=== PATIENT | female | born 1975 | race Caucasian/White ===

== ENCOUNTER 2016-06-07 22:52 | Emergency (ER) | payer MEDICAID, OTHER ==
[~2016-06-07] VITALS: Ht 170.2 cm; Wt 57.2 kg
[2016-06-07 22:52] VITALS: BP 122/66
== END 2016-06-08 02:24 | disposition left against medical advice (07) ==
LOC: M ED 06-08 01:27
DX: L98.9 Disorder of the skin and subcutaneous tissue, unspecified (principal); Z53.21 Procedure and treatment not carried out due to patient leaving prior to being seen by health care provider

== ENCOUNTER 2016-09-12 07:33 | Emergency (ER) | payer OTHER ==
[~2016-09-12] VITALS: Ht 170.2 cm; Wt 56.8 kg
[2016-09-12] MEDS ORDERED: BENZ200C53 (07:46)
--- NOTE | 2016-09-12 09:11 | REP ---
CHEST, TWO VIEWS: COMPARISON: 12/17/2005. There is no evidence of acute infiltrate. No pleural effusion is seen. The heart is normal in size. The mediastinal silhouette is unremarkable. The visualized osseous structures are intact. IMPRESSION: No acute pulmonary disease. Signed by Patel Friedman MD 09/12/2016 05:06 P
[2016-09-12] MEDS ORDERED: ALBU17IN INH (09:15)
[2016-09-12 09:36] VITALS: BP 128/63
== END 2016-09-12 09:38 | disposition home or self-care (01) ==
LOC: M ED 07:33
DX: J06.9 Acute upper respiratory infection, unspecified (principal); Z87.891 Personal history of nicotine dependence; Z79.899 Other long term (current) drug therapy; J30.1 Allergic rhinitis due to pollen

== ENCOUNTER → 2016-09-16 | Outpatient (CLI) | payer OTHER ==
[~2016-09-16] MED LIST: ACET30TAB PO; ALBU17IN INH; BENZ200C53; IBUP-1022 PO; PRED20TA PO; TESS100C PO
== END ==
LOC: M LAB 15:01
PROVIDERS: ATTEND Hospitalist
DX: R05 Cough (principal)

== ENCOUNTER 2016-09-20 12:25 | Emergency (ER) | payer OTHER ==
[~2016-09-20] VITALS: Ht 170.2 cm; Wt 56.8 kg
[~2016-09-20 12:25] MED LIST changes: -ACET30TAB PO; -IBUP-1022 PO; -PRED20TA PO; -TESS100C PO
[2016-09-20] MEDS ORDERED: PRED20TA PO (12:37)
[2016-09-20] MEDS ORDERED: IBUP-1022 PO (12:37)
[2016-09-20] MEDS ORDERED: TESS100C PO (13:24)
[2016-09-20] MEDS ORDERED: ACET30TAB PO (13:24)
[2016-09-20 13:31] VITALS: BP 110/58
--- NOTE | 2016-09-20 13:37 | REP ---
Right rib series: Five views including PA chest. History: Right anterior rib pain. Findings: PA chest radiograph is normal. There is no evidence of infiltrate, pneumothorax or hydrothorax. Mediastinum is not widened. No change from comparison study September 12, 2016. Findings: Five views of the right ribcage show no evidence of rib fracture or bony destructive lesion. Impression: Negative right rib views. Signed by Agustin Alvares MD 09/20/2016 04:13 P
== END 2016-09-20 13:34 | disposition home or self-care (01) ==
LOC: M ED 12:25
DX: R05 Cough (principal); R07.81 Pleurodynia; Z87.442 Personal history of urinary calculi; Z87.891 Personal history of nicotine dependence; Z79.52 Long term (current) use of systemic steroids

== ENCOUNTER → 2016-11-07 | Outpatient (CLI) | payer OTHER ==
[~2016-11-07] MED LIST changes: +ACET30TAB PO; +IBUP-1022 PO; +PRED20TA PO; +TESS100C PO
[2016-11-07 12:27] LABS: BASO % 0.9 % (0.0-1.0); EOS # 0.2 K/mm3 (0.0-0.50); EOS % 4.4 % (0.0-3.0); LARGE UNSTAINED CELL # 0.1 K/mm3 (0.0-0.4); LARGE UNSTAINED CELL % 1.5 % (0.0-4.0); LYMPH % 20.3 % (24.0-44.0); MEAN CORPUSCULAR HGB CONC 34.7 g/dl (32.0-36.5); MEAN CORPUSCULAR VOLUME 92.3 fl (80.0-96.0); MONO # 0.3 K/mm3 (0.0-0.8); MONO % 5.6 % (0.0-5.0); NEUTROPHILS # 3.2 K/mm3 (1.8-7.7); NEUTROPHILS % 67.4 % (36.0-66.0); PLATELET COUNT, AUTOMATED 214 k/mm3 (150-450); RED CELL DISTRIBUTION WIDTH 11.9 % (11.5-14.5); WHITE BLOOD COUNT 4.8 K/mm3 (4.0-10.0)
[2016-11-07 12:53] LABS: ALBUMIN 3.8 GM/DL (3.2-5.2); ALBUMIN/GLOBULIN RATIO 1.09 (1.00-1.93); ALKALINE PHOSPHATASE 63 U/L (45-117); ALT/SGPT 24 U/L (12-78); ANION GAP 9 MEQ/L (8-16); AST/SGOT 14 U/L (15-37); BILIRUBIN,TOTAL 0.9 MG/DL (0.2-1.0); BLOOD UREA NITROGEN 12 MG/DL (7-18); CALCIUM LEVEL 8.6 MG/DL (8.5-10.1); CARBON DIOXIDE LEVEL 28 MEQ/L (21-32); CHLORIDE LEVEL 105 MEQ/L (98-107); CHOLESTEROL LEVEL 157 MG/DL (<200); CREATININE FOR GFR 0.76 MG/DL (0.55-1.02); GLOMERULAR FILTRATION RATE > 60.0 (>58); GLUCOSE, FASTING 66 MG/DL (70-105); POTASSIUM SERUM 4.2 MEQ/L (3.5-5.1); SODIUM LEVEL 142 MEQ/L (136-145); TOTAL PROTEIN 7.3 GM/DL (6.4-8.2); TRIGLYCERIDES LEVEL 54 MG/DL (<150)
== END ==
LOC: M WUC 11:16
PROVIDERS: ATTEND Obstetrics & Gynecology
DX: R07.81 Pleurodynia (principal); J45.30 Mild persistent asthma, uncomplicated; J30.1 Allergic rhinitis due to pollen

== ENCOUNTER 2017-03-01 12:36 | Emergency (ER) | payer OTHER ==
[2017-03-01] MEDS: METOCLOPRAMIDE INJ 10MG/2ML VIAL (J2765) IV (13:58)
[2017-03-01] MEDS: diphenhydrAMINE INJ 50MG/ML VIAL (J1200) IV (13:58)
[2017-03-01] MEDS: NS 1,000 ML IV (13:59)
[2017-03-01] MEDS: KETOROLAC 30 MG/ML VIAL (J1885) IV (13:59)
== END 2017-03-01 15:40 | disposition home or self-care (01) ==
LOC: M ED 12:36
DX: G44.209 Tension-type headache, unspecified, not intractable (principal); J45.909 Unspecified asthma, uncomplicated; Z87.442 Personal history of urinary calculi; Z91.048 Other nonmedicinal substance allergy status
CPT/HCPCS: J1200

== ENCOUNTER → 2017-04-05 | Outpatient (CLI) | payer OTHER, MEDICAID | LOC: M WUC 11:40 | DX: M25.511 Pain in right shoulder (principal); M25.512 Pain in left shoulder | CPT/HCPCS: 73030 ==

== ENCOUNTER 2017-05-16 07:39 | Outpatient (RCR) | payer OTHER, MEDICAID | END 2017-06-03 | LOC: M PT 07:39 | DX: Z51.89 Encounter for other specified aftercare (principal); M75.82 Other shoulder lesions, left shoulder; M75.81 Other shoulder lesions, right shoulder | CPT/HCPCS: 97110 ==

== ENCOUNTER 2017-06-06 07:29 | Outpatient (RCR) | payer OTHER, MEDICAID | END 2017-07-03 | LOC: M PT 07:29 | DX: Z51.89 Encounter for other specified aftercare (principal); M75.82 Other shoulder lesions, left shoulder; M75.81 Other shoulder lesions, right shoulder | CPT/HCPCS: 97010 ==

== ENCOUNTER → 2017-11-09 | Outpatient (CLI) | payer SELFPAY, OTHER | LOC: M WHC 07:51 | DX: Z12.31 Encounter for screening mammogram for malignant neoplasm of breast (principal) | CPT/HCPCS: 77067 ==

== ENCOUNTER → 2017-11-30 | Outpatient (CLI) | payer MEDICAID ==
[2017-11-30 13:34] LABS: BASO % 0.9 % (0.0-1.0); EOS # 0.1 10^3/uL (0.0-0.50); EOS % 2.8 % (0.0-3.0); HEMATOCRIT 38.2 % (36.0-47.0); HEMOGLOBIN 12.7 g/dl (12.0-15.5); IMMATURE GRANULOCYTE % 0.2 % (0-3.0); LYMPH # 1.1 10^3/uL (1.5-4.5); LYMPH % 23.1 % (24.0-44.0); MEAN CORPUSCULAR HEMOGLOBIN 31.5 pg (27.0-33.0); MEAN CORPUSCULAR HGB CONC 33.2 g/dl (32.0-36.5); MEAN CORPUSCULAR VOLUME 94.8 fl (80.0-96.0); MONO # 0.3 10^3/uL (0.0-0.8); MONO % 7.3 % (0.0-5.0); NEUTROPHILS # 3.1 10^3/uL (1.8-7.7); NEUTROPHILS % 65.7 % (36.0-66.0); PLATELET COUNT, AUTOMATED 281 10^3/uL (150-450); RED BLOOD COUNT 4.03 10^6/uL (4.00-5.40); RED CELL DISTRIBUTION WIDTH 11.8 % (11.5-14.5); WHITE BLOOD COUNT 4.6 10^3/uL (4.0-10.0)
[2017-11-30 14:24] LABS: FOLLICLE STIMULATING HORMONE 33.8 mIU/mL; HCG, SERUM QUANTITATIVE < 1.0 MIU/ML; PROLACTIN 4.8 NG/ML
== END ==
LOC: M WUC 10:30
DX: N93.9 Abnormal uterine and vaginal bleeding, unspecified (principal)

== ENCOUNTER → 2018-01-11 | Outpatient (CLI) | payer MEDICAID, SELFPAY ==
[~2018-01-11] MED LIST changes: -BENZ200C53; +BENZ200C70
--- NOTE | 2018-01-11 16:50 | REP ---
Pelvic sonography: History: Abnormal uterine bleeding. Findings: Transabdominal and transvaginal scanning are included. Uterine dimensions are normal 8.3 x 3.4 x 4.8 cm endometrial echo 0.8 cm thick. No focal uterine mass seen. Bladder aguirre are smooth. The right ovary measures 2.6 x 1.0-x 2.4 cm. There is a 0.7 cm ovarian echogenic focus consistent with calcification. Resistive index by Doppler is normal at 0.5. Left ovary dimensions are 3.2 x 2.2 x 3.7 cm. There are echogenic foci in the left ovary producing shadowing as well. Resistive index is normal on the left at 0.45. Impression: No uterine or ovarian mass lesion seen. Small echogenic foci in each ovary consistent with calcifications. Normal Doppler flow. No free fluid.
== END ==
LOC: M WHC 12:22
PROVIDERS: ATTEND Obstetrics & Gynecology
DX: N93.9 Abnormal uterine and vaginal bleeding, unspecified (principal)

== ENCOUNTER → 2018-10-26 | Outpatient (REF) | payer OTHER ==
[~2018-10-26] MED LIST changes: +ACET-716 PO; -ACET30TAB PO; +CYCL10TA; +QVAR40AE12
== END ==
LOC: M SFHCPLAZ 11:27
PROVIDERS: ATTEND Family Medicine
DX: Z13.1 Encounter for screening for diabetes mellitus (principal); Z13.220 Encounter for screening for lipoid disorders; Z53.9 Procedure and treatment not carried out, unspecified reason

== ENCOUNTER 2018-12-01 11:36 | Emergency (ER) | payer OTHER ==
[~2018-12-01] VITALS: Ht 170.2 cm; Wt 56.8 kg
[~2018-12-01 11:36] MED LIST changes: -CYCL10TA; -QVAR40AE12
[2018-12-01] MEDS ORDERED: QVAR40AE12 (11:51)
[2018-12-01] MEDS ORDERED: CYCL10TA (11:51)
[2018-12-01] MEDS ORDERED: CYCLOBENZAPRINE 5MG TABLET PO ONE (14:15)
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
[2018-12-01 14:57] VITALS: BP 100/65
== END 2018-12-01 15:07 | disposition home or self-care (01) ==
LOC: M ED 11:36 → EDBD 11:36 → M ED 15:07
DX: S39.012A Strain of muscle, fascia and tendon of lower back, initial encounter (principal); V49.49XA Driver injured in collision with other motor vehicles in traffic accident, initial encounter; Y92.410 Unspecified street and highway as the place of occurrence of the external cause; J45.909 Unspecified asthma, uncomplicated

== ENCOUNTER → 2018-12-06 | Outpatient (CLI) | payer MEDICAID, OTHER ==
[~2018-12-06] MED LIST changes: +CYCL10TA; +QVAR40AE12
--- NOTE | 2018-12-06 10:48 | REPMRS ---
Patient History The patient states she has not had a clinical breast exam in over a year. No known family history of cancer. 3D TOMOSYNTHESIS WAS PERFORMED. [facility] for [facility]%. Digital Woman Screen Mammo: December 06, 2018 - Exam #: [id number] Bilateral CC and MLO view(s) were taken. Technologist: Guera Miller, Technologist Prior study comparison: November 09, 2017, bilateral digital woman screen mammo performed at [facility]. May 07, 2014, bilateral digital mammo screening bilat, performed at [facility]. FINDINGS: The breast tissue is heterogeneously dense. This may lower the sensitivity of mammography. There has been no change in the appearance of the mammogram from the prior studies. There is a moderate amount of residual fibroglandular tissue which is fairly symmetric. There is no interval development of dominant mass, areas of architectural distortion, or clustered microcalcification typical of malignancy. Assessment: BI-RADS/ACR category 1 mammogram. Negative Mammogram. Recommendation Routine screening mammogram in 1 year (for women over age 40). This mammogram was interpreted with the aid of an FDA-approved computer-aided dectection system. Electronically Signed By: Patel Friedman MD 12/06/18 [id number]
== END ==
LOC: M WHC 08:06
PROVIDERS: ATTEND Obstetrics & Gynecology
DX: Z12.31 Encounter for screening mammogram for malignant neoplasm of breast (principal)

== ENCOUNTER → 2018-12-19 | Outpatient (REF) | payer OTHER | LOC: M SFHCPLAZ 10:19 | PROVIDERS: ATTEND Dermatology | DX: L72.11 Pilar cyst (principal) ==

== ENCOUNTER → 2019-02-18 | Outpatient (CLI) | payer OTHER ==
--- NOTE | 2019-02-18 15:37 | REP ---
Left shoulder: Four views. History: Strain. Findings: Four views of the left shoulder are compared with the prior study from April 05, 2017. Findings: The left glenohumeral and acromioclavicular joints are normally aligned. Periarticular soft tissues are unremarkable. No erosive changes seen. Impression: Negative radiographs of the left shoulder. Electronically Signed by Agustin Alvares MD 02/18/2019 03:28 P
== END ==
LOC: M WUC 15:01
PROVIDERS: ATTEND Physician Assistant
DX: S46.012A Strain of muscle(s) and tendon(s) of the rotator cuff of left shoulder, initial encounter (principal); W18.30XA Fall on same level, unspecified, initial encounter; Y92.009 Unspecified place in unspecified non-institutional (private) residence as the place of occurrence of the external cause

== ENCOUNTER → 2019-03-14 | Outpatient (CLI) | payer OTHER ==
--- NOTE | 2019-03-14 20:14 | REP ---
MRI left shoulder without contrast: History: Other synovitis and tenosynovitis left shoulder. Rule out rotator cuff tear. Comparison shoulder radiographs are from February 18, 2019. Technique: Axial, oblique coronal, and oblique sagittal imaging planes are utilized. T1 and T2-weighted scans were included with and without fat saturation. MRI findings: Cortical and medullary bone signal intensity are normal in the proximal humerus, distal clavicle, and visualized scapula. No significant joint effusion is seen. There is mild tendonitis tendinosis change in the distal supraspinatus on oblique coronal T1-weighted scans. Bursal surface increased T2 signal intensity is seen in the distal tendon suggesting partial thickness distal supraspinatus cuff lesion. Biceps tendon is intact. The subscapularis and infraspinatus tendons are unremarkable. No evidence of anterior or posterior labral tear is appreciated. The superior labral cartilage has an intact appearance. No skeletal muscle changes. Impression: Tendonitis tendinosis in the distal supraspinatus tendon with partial thickness T2 hyperintensity along the bursal surface. Otherwise negative. Electronically Signed by Agustin Alvares MD 03/14/2019 08:21 P
== END ==
LOC: M RAD 10:54
PROVIDERS: ATTEND Orthopaedic Surgery Sports Medicine
DX: M65.812 Other synovitis and tenosynovitis, left shoulder (principal)

== ENCOUNTER → 2019-08-06 | Outpatient (CLI) | payer OTHER ==
[~2019-08-06] MED LIST changes: +CYCL-707; -CYCL10TA; +NEXP1IMP SC
== END ==
LOC: M LABSMTC 11:30
PROVIDERS: ATTEND Anesthesiology
DX: Z01.818 Encounter for other preprocedural examination (principal); Z11.59 Encounter for screening for other viral diseases
CPT/HCPCS: C9803; U0003

== ENCOUNTER 2019-08-09 13:27 | Day surgery (SDC) | payer OTHER ==
[~2019-08-09] VITALS: Ht 170.2 cm; Wt 60.3 kg
[~2019-08-09 13:27] MED LIST changes: +LIDOCAINE 1% MDV 20ML VIAL SQ PRN; +LIDOCAINE 2% 100MG/5ML SDV (FOR ANES.) As Ordered ONE; +LR 1,000 ML IV ONE; +METOCLOPRAMIDE INJ 10MG/2ML VIAL (J2765 PER 1) As Ordered ONE; +MIDAZOLAM INJ 2MG/2ML VIAL (J2250 PER 1MG) As Ordered ONE; +ONDANSETRON 4MG/2ML VIAL As Ordered ONE; +ceFAZolin SOD 2 GM in IV 1 EA IV ONE; +fentaNYL 100 MCG/2 ML INJECTION (J3010) As Ordered ONE; +propofoL 200 MG/20 ML VIAL As Ordered ONE
[2019-08-09] MEDS ORDERED: dexameTHASONE 10MG/1ML VIAL PRES.FREE (J1100 PER 1MG) ONE (13:28)
[2019-08-09] MEDS ORDERED: ROPIvacaine 0.5% 30ML INJECTION (J2795 PER 1MG) ONE (13:28)
[2019-08-09] MEDS ORDERED: LIDOCAINE 1% MDV 20ML VIAL ONE (13:28)
[2019-08-09] MEDS ORDERED: ROCURONIUM BROMIDE 50 MG/5 ML VIAL As Ordered ONE (13:29)
[2019-08-09] MEDS ORDERED: LIDOCAINE 1% MDV 20ML VIAL As Ordered ONE (13:46)
[2019-08-09] MEDS ORDERED: MIDAZOLAM INJ 2MG/2ML VIAL (J2250 PER 1MG) IV ONE (14:15)
[2019-08-09] MEDS ORDERED: fentaNYL 100 MCG/2 ML INJECTION (J3010) IV ONE (14:30)
[2019-08-09] MEDS ORDERED: LR 1,000 ML IV SCH ×2 (16:00)
[2019-08-09] MEDS ORDERED: MORPHINE 2 MG/ML 1ML VIAL (J2270) IV PRN (16:00)
[2019-08-09] MEDS ORDERED: PERCOCET 5MG/325MG TAB PO PRN ×2 (16:00)
[2019-08-09] MEDS ORDERED: HYDROMORPHONE HCL 0.5 MG/ 0.5 ML SYRINGE (J1170 PER 1) IV PRN (16:00)
[2019-08-09] MEDS ORDERED: ONDANSETRON 4MG/2ML VIAL IV PRN ×2 (16:00)
[2019-08-09] MEDS ORDERED: ACETAMINOPHEN TAB 650MG DOSE (2X325MG) PO PRN (16:00)
[2019-08-09] MEDS ORDERED: fentaNYL 100 MCG/2 ML INJECTION (J3010) IV PRN (16:00)
[2019-08-09 18:10] VITALS: BP 142/65
--- NOTE | 2019-08-10 00:40 | RO ---
DATE OF PROCEDURE: 08/09/2019 PREOPERATIVE DIAGNOSIS: Left shoulder impingement syndrome. POSTOPERATIVE DIAGNOSIS: Left shoulder impingement syndrome. PLANNED PROCEDURE: Left shoulder arthroscopy, subacromial decompression, debridement versus repair rotator cuff tear, as well as distal clavicle excision. PROCEDURE PERFORMED: Left shoulder arthroscopy, subacromial decompression and debridement of partial thickness bursal sided supraspinatus tear and distal clavicle excision. SURGEON: Shaggy Matthew MD BODY MECHANIC: Muna Loredo [employer] COORDINATOR: Dr. Viveros TYPE OF ANESTHETIC: General anesthetic and block OPERATIVE PREAMBLE: This 44-year-old female had shoulder pain refractory to nonoperative management. She had pain overlying the acromioclavicular (AC) joint. She had a small bursal-sided rotator cuff tear on MRI. I reiterated the risks in preoperative holding and marked the left upper extremity and proceeded to surgery. DESCRIPTION OF PROCEDURE: The patient was brought to operating theater. She was administered general anesthetic. She was placed left lateral decubitus. Axillary roll was placed and all bony prominences were padded. Sequential compression device (SCDs) were used on the leg. Two grams of IV Ancef was administered. Limb was prepped and draped in the usual sterile fashion with 10 pounds traction, the arm in 45 degrees in abduction. Preop time-out was performed to confirm the site, the patient and surgery. Over 3 minutes prep solution drying time was used prior to draping. Began by making a standard posterior arthroscopy portal. Inserted the arthroscope into the glenohumeral joint. I performed thorough diagnostic arthroscopy. Cartilage on the humeral head and glenoid was normal. Labrum was normal circumferentially. Biceps was normal. No synovitis tears or SLAP tears. Rotator interval was entered with a spinal needle and then a shaver brought into the joint. Small amounts of debridement in the rotator interval was performed. Middle glenohumeral ligament as well as subscapularis tendon appeared normal as did the undersurface of the supraspinatus tendon. Axillary pouch was normal. No obvious loose body. Scope was withdrawn and placed into the subacromial space. Performed a thorough debridement of the bursa. There was no obvious inflamed bursa, normal amount of bursa was present. This was debrided and removed. Subacromial decompression was performed to flat margins. There was no obvious large spur. I used a 4.0 oval bur to perform this. I then turned my attention to the AC joint. I performed a distal clavicle excision for a length of 1.1 cm, at least two burs widths. I then inserted the arthroscope into the AC joint to confirm proper debridement and removal of the distal clavicle. I used cautery throughout the case to achieve hemostasis. Subacromial space was then thoroughly debrided of any remaining bone dust and bursa. I then probed the superior surface of the rotator cuff. There was only a small amount of bursal fraying, 50% or less of thickness, of the supraspinatus tendon near the anterior margin, approximately 10 mm medial to the footprint. This was gently debrided. No obvious full-thickness tears were seen or over 50% thickness partial tears. Scope was withdrawn. Portal sites cleaned. The portal sites were closed with interrupted #3-0 Monocryl sutures and Steri-Strips were applied as well as Adaptic, 4x8 gauze, ABD dressing and cloth tape. The patient's upper extremity was placed into a sling. The patient was woken up from general anesthetic, taken out of the traction setup, transferred off the operating table, and taken to the postanesthetic care unit in stable condition. All sponge, needle, and instrument counts were correct. No complications. Estimated blood loss 50 mL. Plan for the patient is to be in a sling as tolerated for the next 2 weeks and start physical therapy. She can start immediate pendulum exercise as well as hand, wrist and elbow exercises. Prescription sent into her pharmacy of choice. Followup in 2 weeks time. She can be discharged home according to day-surgery criteria. She may change the dressing postop day #2 and shower postoperative day #14.
== END 2019-08-09 18:15 | disposition home or self-care (01) ==
LOC: M SDC 13:27
PROVIDERS: ATTEND Orthopaedic Surgery Sports Medicine
DX: M75.42 Impingement syndrome of left shoulder (principal); J45.909 Unspecified asthma, uncomplicated; Z79.51 Long term (current) use of inhaled steroids; Z79.899 Other long term (current) drug therapy
CPT/HCPCS: 29823; 29824; 29826; 64415; 81025; J1100; J2250; J2405; J2765; J2795; J3010

== ENCOUNTER → 2020-02-14 | Outpatient (CLI) | payer OTHER ==
[~2020-02-14] MED LIST changes: -LIDOCAINE 1% MDV 20ML VIAL SQ PRN; -LIDOCAINE 2% 100MG/5ML SDV (FOR ANES.) As Ordered ONE; -LR 1,000 ML IV ONE; -METOCLOPRAMIDE INJ 10MG/2ML VIAL (J2765 PER 1) As Ordered ONE; -MIDAZOLAM INJ 2MG/2ML VIAL (J2250 PER 1MG) As Ordered ONE; -ONDANSETRON 4MG/2ML VIAL As Ordered ONE; -ceFAZolin SOD 2 GM in IV 1 EA IV ONE; -fentaNYL 100 MCG/2 ML INJECTION (J3010) As Ordered ONE; -propofoL 200 MG/20 ML VIAL As Ordered ONE
--- NOTE | 2020-02-14 16:57 | REP ---
INDICATION: DYSPNEA. COMPARISON: Comparison radiographs September 20, 2016. TECHNIQUE: Two views.. FINDINGS: The lungs are well inflated and free of infiltrate. The pleural angles are sharp. The heart size is normal. Pulmonary vasculature is not increased. No significant bony abnormality is seen. There is a mild pectus excavatum. IMPRESSION: Negative chest x-ray. <Electronically signed by Celestine Alvares > 02/14/20 [id number]
== END ==
LOC: M WUC 14:24
PROVIDERS: ATTEND Physician Assistant
DX: R06.00 Dyspnea, unspecified (principal)

== ENCOUNTER → 2020-04-14 | Outpatient (CLI) | payer OTHER ==
[~2020-04-14] MED LIST changes: +METHACHOLINE KIT (J7674) INH ONE
--- NOTE | 2020-04-14 14:10 | PFTRPT ---
Height: 67.00 Inches Weight: 133.00 Lbs BSA: 1.70 Diagnosis: R06.00 DATE: 04/14/2020 ORDERED BY: KULWINDER Sanchez QUALITY: Study of excellent technical quality. PROCEDURE: Under protocol, methacholine was administered. Even after a maximal dose of 25 mg or 188.875 CDUs, no provocation dose ever achieved. IMPRESSION: Negative methacholine challenge study. MTDD
== END ==
LOC: M CARPUL 12:59
PROVIDERS: ATTEND Physician Assistant
DX: R06.00 Dyspnea, unspecified (principal)
CPT/HCPCS: 94070; 95070; J7674

== ENCOUNTER → 2020-04-20 | Outpatient (CLI) | payer OTHER ==
[~2020-04-20] MED LIST changes: -METHACHOLINE KIT (J7674) INH ONE
--- NOTE | 2020-04-20 18:18 | REP ---
INDICATION: LOW BACK PAIN COMPARISON: 12/01/2018 TECHNIQUE: AP, lateral, bilateral oblique, and coned-down views of the lumbar spine. FINDINGS: Alignment and lordosis maintained. Vertebral bodies are intact. Disc spaces are relatively normal/age-appropriate. No acute fracture/compression injury or subluxation. No obvious spondylolysis or spondylolisthesis.. IMPRESSION: Normal Lumbosacral Spine series. <Electronically signed by Alexis Schulte > 04/20/20 [id number]
== END ==
LOC: M RAD 12:01
PROVIDERS: ATTEND Student in an Organized Health Care Education/Training Program
DX: M54.5 Low back pain (principal)

== ENCOUNTER → 2020-08-07 | Outpatient (CLI) | payer OTHER ==
[2020-08-07 16:10] LABS: HEMOGLOBIN A1c 5.4 %
[2020-08-07 16:28] LABS: ALT/SGPT 24 U/L (12-78); BILIRUBIN,TOTAL 1.1 MG/DL (0.2-1.0); BLOOD UREA NITROGEN 14 MG/DL (7-18); CALCIUM LEVEL 9.2 MG/DL (8.5-10.1); CARBON DIOXIDE LEVEL 28 MEQ/L (21-32); CHLORIDE LEVEL 107 MEQ/L (98-107); CHOLESTEROL LEVEL 151 MG/DL (<200); CHOLESTEROL RISK RATIO 2.603 (<5); CREATININE FOR GFR 0.69 MG/DL (0.55-1.30); GLOMERULAR FILTRATION RATE > 60.0 (>58); GLUCOSE, FASTING 87 MG/DL (70-100); HDL CHOLESTEROL 58 MG/DL (>40); LDL CHOLESTEROL 80 MG/DL (<100); NON-HDL-C 93 MG/DL; POTASSIUM SERUM 4.4 MEQ/L (3.5-5.1); SODIUM LEVEL 138 MEQ/L (136-145); TOTAL PROTEIN 7.3 GM/DL (6.4-8.2); TRIGLYCERIDES LEVEL 65 MG/DL (<150)
== END ==
LOC: M WUC 12:19
PROVIDERS: ATTEND Internal Medicine
DX: Z13.220 Encounter for screening for lipoid disorders (principal); Z13.1 Encounter for screening for diabetes mellitus; Z13.29 Encounter for screening for other suspected endocrine disorder

== ENCOUNTER → 2021-05-14 | Outpatient (CLI) | payer OTHER | LOC: M WUC 10:31 | PROVIDERS: ATTEND Physician Assistant | DX: M79.652 Pain in left thigh (principal) ==

== ENCOUNTER → 2021-05-24 | Outpatient (REF) | payer OTHER ==
[2021-05-24 16:35] LABS: BLOOD UREA NITROGEN 16 MG/DL (7-18); CALCIUM LEVEL 9.7 MG/DL (8.5-10.1); CARBON DIOXIDE LEVEL 30 MEQ/L (21-32); CHLORIDE LEVEL 100 MEQ/L (98-107); CREATININE FOR GFR 0.77 MG/DL (0.55-1.30); GLOMERULAR FILTRATION RATE > 60.0 (>58); GLUCOSE, FASTING 89 MG/DL (70-100); POTASSIUM SERUM 4.5 MEQ/L (3.5-5.1); SODIUM LEVEL 134 MEQ/L (136-145)
== END ==
LOC: M WUC 15:27
PROVIDERS: ATTEND Student in an Organized Health Care Education/Training Program
DX: G57.12 Meralgia paresthetica, left lower limb (principal)

== ENCOUNTER → 2022-01-11 | Outpatient (CLI) | payer OTHER ==
[~2022-01-11] MED LIST changes: +ETON68IM SC; -NEXP1IMP SC
== END ==
LOC: M SOG 07:56
PROVIDERS: ATTEND Orthopaedic Surgery
DX: M54.50 Low back pain, unspecified (principal)

== ENCOUNTER → 2022-08-17 | Outpatient (CLI) | payer OTHER | LOC: M WHC 12:10 | PROVIDERS: ATTEND Student in an Organized Health Care Education/Training Program | DX: Z12.31 Encounter for screening mammogram for malignant neoplasm of breast (principal) ==

== ENCOUNTER → 2022-10-07 | Outpatient (REF) | payer OTHER | LOC: M SFHCWAGY 13:04 | PROVIDERS: ATTEND Nurse Practitioner Family | DX: Z12.4 Encounter for screening for malignant neoplasm of cervix (principal); R87.610 Atypical squamous cells of undetermined significance on cytologic smear of cervix (ASC-US) ==

== ENCOUNTER → 2022-11-15 | Outpatient (REF) | payer OTHER | LOC: M SFHCWAGY 17:38 | PROVIDERS: ATTEND Obstetrics & Gynecology | DX: R87.610 Atypical squamous cells of undetermined significance on cytologic smear of cervix (ASC-US) (principal) ==

== ENCOUNTER → 2023-03-29 | Outpatient (CLI) | payer OTHER ==
[2023-03-29 16:07] LABS: HEMATOCRIT 40.4 % (36.0-47.0); HEMOGLOBIN 13.4 g/dl (12.0-15.5); MEAN CORPUSCULAR HGB CONC 33.2 g/dl (32.0-36.5); MEAN CORPUSCULAR VOLUME 93.5 fl (80.0-96.0); PLATELET COUNT, AUTOMATED 344 10^3/uL (150-450); RED BLOOD COUNT 4.32 10^6/uL (4.00-5.40); WHITE BLOOD COUNT 7.1 10^3/uL (4.0-10.0)
[2023-03-29 16:19] LABS: ALBUMIN 4.2 G/DL (3.2-5.2); ALKALINE PHOSPHATASE 74 U/L (46-116); ALT/SGPT 23 U/L (7.0-40); AST/SGOT 12 U/L (<34); BILIRUBIN,TOTAL 1.1 MG/DL (0.3-1.2); BLOOD UREA NITROGEN 11 MG/DL (9-23); CALCIUM LEVEL 9.4 MG/DL (8.5-10.1); CARBON DIOXIDE LEVEL 28 MMOL/L (20-31); CHLORIDE LEVEL 107 MMOL/L (98-107); CHOLESTEROL LEVEL 157 MG/DL (<200); CREATININE FOR GFR 0.75 MG/DL (0.55-1.30); GLOMERULAR FILTRATION RATE > 60.0 (>51); GLUCOSE, FASTING 108 MG/DL (60-100); HDL CHOLESTEROL 43.6 MG/DL (>40); LDL CHOLESTEROL 91.8 MG/DL (<100); NON-HDL-C 113.4 MG/DL; POTASSIUM SERUM 4.5 MMOL/L (3.5-5.1); SODIUM LEVEL 140 MMOL/L (136-145); TOTAL PROTEIN 7.4 G/DL (5.7-8.2); TRIGLYCERIDES LEVEL 108 MG/DL (<150)
[2023-03-29 16:21] LABS: THYROID STIMULATING HORMONE 1.035 uIU/ML (0.55-4.78); TOTAL 25(OH) VITAMIN D 16.3 NG/ML (20.0-100.0)
[2023-03-29 16:22] LABS: HEMOGLOBIN A1c 5.2 % (4.0-6.0)
== END ==
LOC: M PLALAB 11:56
PROVIDERS: ATTEND Student in an Organized Health Care Education/Training Program
DX: Z13.1 Encounter for screening for diabetes mellitus (principal); Z13.220 Encounter for screening for lipoid disorders; Z13.820 Encounter for screening for osteoporosis; N93.9 Abnormal uterine and vaginal bleeding, unspecified

== ENCOUNTER → 2023-06-21 | Outpatient (CLI) | payer OTHER | LOC: M PLAIMG 10:33 | PROVIDERS: ATTEND Nurse Practitioner Family | DX: M54.50 Low back pain, unspecified (principal) ==

== ENCOUNTER → 2024-07-11 | Outpatient (CLI) | payer OTHER | LOC: M WUC 08:40 | PROVIDERS: ATTEND Nurse Practitioner Family | DX: R07.82 Intercostal pain (principal) ==